=== PATIENT | female | born 1940 | race Caucasian/White ===

== ENCOUNTER → 2025-08-15 11:09 | Outpatient (REF) | payer MEDICARE, BC, SELFPAY | LOC: HWRCS 11:09 | PROVIDERS: ATTENDING PHYSICIAN Student in an Organized Health Care Education/Training Program; FAMILY PHYSICIAN Internal Medicine | DX: I10 Essential (primary) hypertension (principal); E78.2 Mixed hyperlipidemia; I35.0 Nonrheumatic aortic (valve) stenosis | CPT/HCPCS: 93306 ==